=== PATIENT | male | born 1935 | race Caucasian/White ===

== ENCOUNTER 2021-03-06 11:11 | Emergency (ER) | payer MEDICARE, MEDICAID ==
[2021-03-06] MEDS ORDERED: Sodium Chloride 0.9% 10 ML Syringe FLUSH PRN (11:34)
--- NOTE | 2021-03-06 11:41 | EDM.PDOC ---
ED HPI GENERAL MEDICAL PROBLEM - General Chief Complaint: General Stated Complaint: DIZZY AND DISORIENTED Time Seen by Provider: 03/06/21 11:34 Source of Information: Reports: Patient History Limitations: Reports: No Limitations, Other (ED vital signs reveal a temp of 97.6, pulse of 42, respiratory rate of 16, blood pressure 199/90, pulse ox 97% on room air) - History of Present Illness INITIAL COMMENTS - FREE TEXT/NARRATIVE: 85-year-old male presents the emergency department today with complaints of sudden onset dizziness. Patient states he was standing in light of the grocery store when he started to feel dizzy as if the room was spinning. Denies any recent fever, chills, nausea, vomiting, abdominal pain or diarrhea. Denies any cough or shortness of breath. Patient does not take any prescription medications. He denies any past medical history. States that he has had issues with intermittent dizziness in the past. States it comes on quite suddenly and then generalized subsides over time. He states it started when he is standing in the grocery store and it persisted until he got into the emergency department and settled into bed. He is not currently dizzy. He denies any history of smoking however he does have some audible expiratory wheezing noted. He he admits to drinking 1 shot of scotch per day. His primary care provider is in [place]. - Related Data Allergies Allergy/AdvReac Type Severity Reaction Status Date / Time No Known Allergies Allergy Verified 03/06/21 11:37 Home Meds: Home Meds Chlorphenir/Phenyleph/Aspirin [Kar[place] Plus Cold Eff] 1 each PO DAILY PRN 03/06/21 [History] ED ROS GENERAL - Review of Systems Review Of Systems: Comprehensive ROS is negative, except as noted in HPI. ED EXAM, GENERAL - Physical Exam Exam: See Below Exam Limited By: No Limitations General Appearance: Alert, WD/WN, No Apparent Distress Eye Exam: Bilateral Eye: EOMI, PERRL Ears: Normal External Exam, Hearing Grossly Normal Nose: Normal Inspection Throat/Mouth: Normal Inspection, Normal Lips, Normal Voice, No Airway Compromise Head: Atraumatic, Normocephalic Neck: Normal Inspection, Supple Respiratory/Chest: No Respiratory Distress, No Accessory Muscle Use, Chest Non- Tender, Wheezing (Expiratory wheezes) Cardiovascular: Normal Peripheral Pulses, No Edema, No Murmur, Bradycardia Peripheral Pulses: 2+: Radial (L), Radial (R) GI/Abdominal: Normal Bowel Sounds, Soft, Non-Tender, No Distention (Male) Exam: Deferred Rectal (Males) Exam: Deferred Back Exam: Normal Inspection, Full Range of Motion Extremities: Normal Inspection, Normal Range of Motion, Non-Tender, No Pedal Edema, Normal Capillary Refill Neurological: Alert, Oriented, CN II-XII Intact, Normal Cognition Psychiatric: Normal Affect, Normal Mood Skin Exam: Warm, Dry, Intact, Normal Color, No Rash Lymphatic: No Adenopathy #1 Interpretation EKG Date: 03/06/21 Time: 11:31 Rhythm: NSR Rate (Beats/Min): 59 [place]: Normal P-Wave: Present QRS: Normal ST-T: Normal QT: Prolonged Comparison: NA - No Prior EKG EKG Interpretation Comments: Per Dr. Jose interpretation: Sinus rhythm at 60 bpm; right bundle branch block pattern; early R wave transition consider septal hypertrophy; mild ST elevation III; QTc mildly prolonged Course - Vital Signs Text/Narrative:: Again, patient's only complaint is sudden onset dizziness when he is standing in line at the grocery store. States he does have a history of sudden onset dizziness in the past. He denies any past medical history and does not take any prescription medications. I have ordered labs to include a CBC, CMP, C- reactive protein, magnesium level, proBNP, and a troponin. We will also obtain an EKG and a portable view of the chest. Last Recorded V/S: Last Vital Signs Temp 97.6 F 03/06/21 11:27 Pulse 42 L 03/06/21 11:27 Resp 16 03/06/21 11:27 BP 199/90 H 03/06/21 11:27 Pulse Ox 97 03/06/21 11:27 - Orders/Labs/Meds Orders: Active Orders 24 hr Category Date Time Status Saline Lock Insert [OM.PC] Stat Oth 03/06/21 11:34 Ordered Labs: Laboratory Tests 03/06/21 03/06/21 03/06/21 Range/Units 11:48 11:48 11:48 WBC 5.52 (4.23-9.07) K/mm3 RBC 4.60 L (4.63-6.08) M/mm3 Hgb 13.3 L (13.7-17.5) gm/dl Hct 41.3 (40.1-51.0) % MCV 89.8 (79.0-92.2) fl MCH 28.9 (25.7-32.2) pg MCHC 32.2 (32.2-35.5) g/dl RDW Std Deviation 51.8 H (35.1-43.9) fL Plt Count 231 (163-337) K/mm3 MPV 9.9 (9.4-12.3) fl Neut % (Auto) 40.4 (34.0-67.9) % Lymph % (Auto) 46.7 (21.8-53.1) % [place] % (Auto) 8.0 (5.3-12.2) % Eos % (Auto) 4.2 (0.8-7.0) Baso % (Auto) 0.5 (0.1-1.2) % Neut # (Auto) 2.23 (1.78-5.38) K/mm3 Lymph # (Auto) 2.58 (1.32-3.57) K/mm3 [place] # (Auto) 0.44 (0.30-0.82) K/mm3 Eos # (Auto) 0.23 (0.04-0.54) K/mm3 Baso # (Auto) 0.03 (0.01-0.08) K/mm3 Sodium 141 (136-145) mEq/L Potassium 4.4 (3.5-5.1) mEq/L Chloride 104 (98-107) mEq/L Carbon Dioxide 29 (21-32) mEq/L Anion Gap 12.4 (5-15) BUN 20 H (7-18) mg/dL Creatinine 1.5 H (0.7-1.3) mg/dL Est Cr Clr Drug Dosing 33.08 mL/min Estimated GFR (MDRD) 45 (>60) mL/min BUN/Creatinine Ratio 13.3 L (14-18) Glucose 100 H (70-99) mg/dL Calcium 9.3 (8.5-10.1) mg/dL Magnesium 2.3 (1.8-2.4) mg/dL Total Bilirubin 0.6 (0.2-1.0) mg/dL AST 30 (15-37) U/L ALT 31 (16-63) U/L Alkaline Phosphatase 51 (46-116) U/L Troponin I < 0.017 (0.00-0.056) ng/mL C-Reactive Protein < 0.2 (<1.0) mg/dL NT-Pro-B Natriuret Pep 599 H (0-450) pg/mL Total Protein 7.7 (6.4-8.2) g/dl Albumin 3.9 (3.4-5.0) g/dl Globulin 3.8 gm/dL Albumin/Globulin Ratio 1.0 (1-2) Urine Color (Yellow) Urine Appearance (Clear) Urine pH (5.0-8.0) Ur Specific [place] (1.005-1.030) Urine Protein (Negative) Urine Glucose (UA) (Negative) Urine Ketones (Negative) Urine Occult Blood (Negative) Urine Nitrite (Negative) Urine Bilirubin (Negative) Urine Urobilinogen (0.2-1.0) Ur Leukocyte Esterase (Negative) 03/06/21 Range/Units 12:40 WBC (4.23-9.07) K/mm3 RBC (4.63-6.08) M/mm3 Hgb (13.7-17.5) gm/dl Hct (40.1-51.0) % MCV (79.0-92.2) fl MCH (25.7-32.2) pg MCHC (32.2-35.5) g/dl RDW Std Deviation (35.1-43.9) fL Plt Count (163-337) K/mm3 MPV (9.4-12.3) fl Neut % (Auto) (34.0-67.9) % Lymph % (Auto) (21.8-53.1) % [place] % (Auto) (5.3-12.2) % Eos % (Auto) (0.8-7.0) Baso % (Auto) (0.1-1.2) % Neut # (Auto) (1.78-5.38) K/mm3 Lymph # (Auto) (1.32-3.57) K/mm3 [place] # (Auto) (0.30-0.82) K/mm3 Eos # (Auto) (0.04-0.54) K/mm3 Baso # (Auto) (0.01-0.08) K/mm3 Sodium (136-145) mEq/L Potassium (3.5-5.1) mEq/L Chloride (98-107) mEq/L Carbon Dioxide (21-32) mEq/L Anion Gap (5-15) BUN (7-18) mg/dL Creatinine (0.7-1.3) mg/dL Est Cr Clr Drug Dosing mL/min Estimated GFR (MDRD) (>60) mL/min BUN/Creatinine Ratio (14-18) Glucose (70-99) mg/dL Calcium (8.5-10.1) mg/dL Magnesium (1.8-2.4) mg/dL Total Bilirubin (0.2-1.0) mg/dL AST (15-37) U/L ALT (16-63) U/L Alkaline Phosphatase (46-116) U/L Troponin I (0.00-0.056) ng/mL C-Reactive Protein (<1.0) mg/dL NT-Pro-B Natriuret Pep (0-450) pg/mL Total Protein (6.4-8.2) g/dl Albumin (3.4-5.0) g/dl Globulin gm/dL Albumin/Globulin Ratio (1-2) Urine Color Yellow (Yellow) Urine Appearance Clear (Clear) Urine pH 7.0 (5.0-8.0) Ur Specific [place] 1.020 (1.005-1.030) Urine Protein Negative (Negative) Urine Glucose (UA) Negative (Negative) Urine Ketones Negative (Negative) Urine Occult Blood Negative (Negative) Urine Nitrite Negative (Negative) Urine Bilirubin Negative (Negative) Urine Urobilinogen 0.2 (0.2-1.0) Ur Leukocyte Esterase Negative (Negative) Meds: Medications Discontinued Medications Generic Name Dose Route Start Last Admin Trade Name Freq PRN Reason Stop Dose Admin Sodium Chloride 10 ml 03/06/21 11:34 03/06/21 11:39 Sodium Chloride 0.9% 10 Ml Syringe FLUSH 10 ml ASDIRECTED PRN Administration Keep Vein Open - Re-Assessments/Exams Free Text/Narrative Re-Assessment/Exam: 03/06/21 12:57 Radiologist impression portable view of the chest: Slight density is noted within the right lung base. Lungs otherwise are clear. Heart size and mediastinum are normal. Bony structures show nothing acute. 03/06/21 13:32 Hematology reveals a WBC of 5.52, hemoglobin 13.3, hematocrit 41.3 Chemistry reveals a sodium of 141, potassium 4.4, chloride 104, anion gap 12.4, BUN 20, creatinine 1.5, glucose 100, magnesium 2.3, troponin less than 0.017, C- reactive protein less than 0.2 Urinalysis is unremarkable I do not feel that the patient has any sort of pneumonia as her is white count and CRP are not elevated. The patient ate a full lunch and states he feels much better and is ready to go home. At this time. The patient's cause for dizziness is likely due to bradycardia. I will discharge him to home with recommendations that he follow-up with his primary care provider within a week. Patient did ambulate in the hallway with nursing staff. He denied any dizziness and his gait was steady. Departure - Departure Time of Disposition: 13:33 Disposition: Home, Self-Care 01 Condition: Good Clinical Impression: Dizziness - Discharge Information Instructions: Dizziness, [id number] Referrals: Martina Schilling MD [Primary Care Provider] - Forms: ED Department Discharge Additional Instructions: You were seen in the emergency department today with complaints of dizziness while at the grocery store. Labs were completed as well as an electrocardiogram and a chest x-ray. Your lab work all looked pretty unremarkable however your kidney function is a little decreased which is to be expected due to your age. Cause of your dizziness is likely due to a whole low heart rate. Although this resolved while you are in the emergency department. Recommend that you follow- up with your primary care provider in about a week for further evaluation. Should your condition worsen or change, do not hesitate returning to the emergency department. Sepsis Event Note (ED) - Evaluation Sepsis Screening Result: No Definite Risk - Focused Exam Vital Signs: Vital Signs Temp Pulse Resp BP Pulse Ox 03/06/21 11:27 97.6 F 42 L 16 199/90 H 97 - My Orders Last 24 Hours: My Active Orders 03/06/21 11:34 Saline Lock Insert [OM.PC] Stat - Assessment/Plan Last 24 Hours: My Active Orders 03/06/21 11:34 Saline Lock Insert [OM.PC] Stat
--- NOTE | 2021-03-06 12:32 | CR ---
Chest: Portable view of the chest was obtained. Comparison: No previous study. Slight density is noted within the right lung base. Lungs otherwise are clear. Heart size and mediastinum are normal. Bony structures show nothing acute. Impression: 1. Slight density within the right lung base. Differential includes small area of pneumonia versus an area of atelectasis. 2. Other portions of the portable chest x-ray are within normal limits. Diagnostic code #3
== END 2021-03-06 13:58 | disposition home or self-care (01) ==
LOC: JD.ED 11:11
DX: R42 Dizziness and giddiness (principal)
CPT/HCPCS: 36415; 71045; 71045-26; 80053; 81003; 83735; 83880; 84484; 85025; 86140; 93005; 93010; 99284; 99284-25